=== PATIENT | male | born 1950 | race Caucasian/White ===

== ENCOUNTER 2020-07-01 06:30 | Inpatient (IN) | payer MEDICARE ==
[~2020-07-01] VITALS: Ht 170.2 cm; Wt 83.2 kg
[2020-07-01] MEDS ORDERED: HEPARIN 25,000 UNITS/250ML PMX 250 ML ONE (06:34)
[2020-07-01] MEDS ORDERED: MIDAZOLAM 1 MG/ML, 5ML ONE (06:36)
[2020-07-01] MEDS ORDERED: FENTANYL PF 100 MCG/2ML ONE (06:36)
[2020-07-01] MEDS ORDERED: BIVALIRUDIN 250 MG ONE (06:37)
[2020-07-01] MEDS ORDERED: ASPI-515 PO (06:37)
[2020-07-01] MEDS ORDERED: VERAPAMIL 2.5 MG/ML, 2ML ONE (06:37)
[2020-07-01] MEDS ORDERED: LIDOCAINE 2%, 20ML ONE (06:37)
[2020-07-01] MEDS ORDERED: HEPARIN 1,000 UNITS/ML, 10ML ONE (06:37)
[2020-07-01] MEDS ORDERED: TICAGRELOR 90 MG TABLET ONE (06:37)
[2020-07-01] MEDS ORDERED: LISINOPRIL PO (06:37)
--- NOTE | 2020-07-01 06:42 | NUR ---
Pt presents to ed for chest discomfort for "last couple of days." States pain worse last night that woke him up out of sleep. Aleasa deemed pt candidate for code cardiac and tx to our facility directly after admit to [facility]. Pt given 324 mg asa, 0.4 mg of nitro, 4 mg zofran, 4 mg morphine, 4000 U bolus of heparin and 1000 U/hr drip from sending facility. Bilateral 18 G ac placed via sending facility. Upon admit to facility, pt has mild chest discomfort midline "not too bad" w/ no radiation or associated sob. states to maintain 1000 U/hr heparin drip via sending facility. Verified w/ Dara LORA. Code cardiac canceled after EKG and consult via ERP. All monitoring intact and vss. Awaiting further orders.
[2020-07-01] MEDS ORDERED: NITROGLYCERIN OINT 2%, 1GM TP ONE ×2 (06:47→07:00)
[2020-07-01 06:53] LABS: BASOPHILS # (AUTO) 0.01 x10^3/uL (0-0.1); BASOPHILS % (AUTO) 0 % (0-1); EOSINOPHILS # (AUTO) 0.03 x10^3/uL (0-0.4); EOSINOPHILS % (AUTO) 0 % (1-7); LYMPHOCYTES # (AUTO) 0.63 x10^3/uL (1-3.4); LYMPHOCYTES % (AUTO) 6 % (22-44); MD NO; MEAN CORPUSCULAR HEMOGLOBIN 31.1 pg (27.5-34.5); MEAN CORPUSCULAR VOLUME 94.3 fL (81-97); MEAN PLATELET VOLUME 7.4 fL (7.4-10.4); MONOCYTES # (AUTO) 0.76 x10^3/uL (0.2-0.8); MONOCYTES % (AUTO) 7 % (2-9); NEUTROPHILS # (AUTO) 9.94 x10^3/uL (1.8-6.8); NEUTROPHILS % (AUTO) 88 % (42-75); PLATELET COUNT 249 x10^3/uL (130-400); RED BLOOD COUNT 4.26 x10^6/uL (4.38-5.82); RED CELL DISTRIBUTION WIDTH 13.1 % (9.4-14.8)
--- NOTE | 2020-07-01 06:53 | NUR ---
REPORT FROM SRIDEVI
[2020-07-01] MEDS: HEPARIN 5,000 UNITS/ML, 1ML IV PRN ×3 (06:56→21:16)
[2020-07-01] MEDS: HEPARIN 25,000 UNITS/250ML PMX 250 ML IV PRN (06:57)
[2020-07-01] MEDS ORDERED: HEPARIN 5,000 UNITS/ML, 1ML IV ONE (07:00)
[2020-07-01] MEDS ORDERED: SODIUM CHLORIDE FLUSH 10ML SYR IVF ONE (07:00)
[2020-07-01 07:01] LABS: ALBUMIN 3.8 g/dL (3.4-5.0); ANION GAP 5 mmol/L (5-15); CHLORIDE 100 mmol/L (98-107); CREATININE 0.71 mg/dL (0.7-1.3)
--- NOTE | 2020-07-01 07:03 | NUR ---
Past MT called code cardiac @ 0549. All phlebotomist medical lab assistant in route to ED @ 0541 per code phone team. Cardiology paged @ 0602. Code cardiac cancelled per EDMD @ 0642.
[2020-07-01 07:06] LABS: TROPONIN I 0.171 ng/mL (0.000-0.045)
--- NOTE | 2020-07-01 07:08 | NUR ---
See above note: Cardiology called back @ 0604.
--- NOTE | 2020-07-01 07:58 | NUR ---
STAT ECHO ordered per Dr. Salgado's request. Spoke with Clarisse from [facility] she states a tech will be down to complete the exam. Dr. Salgado to read ECHO.
--- NOTE | 2020-07-01 08:52 | NUR ---
REPORT TO JAIME. [facility] READY FOR TRANSFER
[2020-07-01] MEDS ORDERED: OMNIPAQUE 350 MG/ML, 75ML BOTTLE ONE ×2 (09:26→09:32)
[2020-07-01] MEDS ORDERED: ONDANSETRON 2MG/ML, 2ML IVPush PRN (09:30)
[2020-07-01] MEDS ORDERED: DIPHENHYDRAMINE 25 MG CAPSULE PO PRN (09:30)
[2020-07-01] MEDS ORDERED: ENALAPRILAT 1.25 MG/ML, 2ML IVPush PRN (09:30)
[2020-07-01] MEDS ORDERED: morphine SULFATE 10 MG/ML, 1ML IVPush PRN (09:30)
[2020-07-01] MEDS ORDERED: ONDANSETRON ODT 4 MG PO PRN (09:30)
[2020-07-01 09:51] VITALS: BP 156/95
[2020-07-01 10:01] LABS: TROPONIN I 0.101 ng/mL (0.000-0.045)
[2020-07-01 13:05] VITALS: BP 120/80
[2020-07-01 15:29] LABS: TROPONIN I 0.088 ng/mL (0.000-0.045)
[2020-07-01 20:35] VITALS: BP 121/77
[2020-07-01] MEDS: FAMOTIDINE 20 MG TABLET PO SCH (20:41)
[2020-07-01] MEDS: ACETAMINOPHEN 325 MG TABLET PO PRN (20:41)
[2020-07-02] VITALS (7 sets, daily range): BP systolic 125–208; BP diastolic 84–99
[2020-07-02 03:36] LABS: BASOPHILS # (AUTO) 0.02 x10^3/uL (0-0.1); BASOPHILS % (AUTO) 0 % (0-1); EOSINOPHILS # (AUTO) 0.11 x10^3/uL (0-0.4); EOSINOPHILS % (AUTO) 1 % (1-7); LYMPHOCYTES # (AUTO) 0.63 x10^3/uL (1-3.4); LYMPHOCYTES % (AUTO) 6 % (22-44); MD NO; MEAN CORPUSCULAR HEMOGLOBIN 31.6 pg (27.5-34.5); MEAN CORPUSCULAR HGB CONC 33.6 g/dL (33.2-36.2); MEAN CORPUSCULAR VOLUME 93.9 fL (81-97); MEAN PLATELET VOLUME 7.3 fL (7.4-10.4); MONOCYTES # (AUTO) 0.79 x10^3/uL (0.2-0.8); MONOCYTES % (AUTO) 8 % (2-9); NEUTROPHILS # (AUTO) 8.34 x10^3/uL (1.8-6.8); NEUTROPHILS % (AUTO) 84 % (42-75); PLATELET COUNT 222 x10^3/uL (130-400); RED BLOOD COUNT 3.83 x10^6/uL (4.38-5.82); RED CELL DISTRIBUTION WIDTH 13.1 % (9.4-14.8)
[2020-07-02 03:46] LABS: ANION GAP 6 mmol/L (5-15); CALCIUM 8.1 mg/dL (8.5-10.1); CHLORIDE 101 mmol/L (98-107); CREATININE 0.65 mg/dL (0.7-1.3)
[2020-07-02] MEDS: HEPARIN 5,000 UNITS/ML, 1ML IV PRN ×3 (04:01→18:30)
[2020-07-02] MEDS: ASPIRIN 325 MG TABLET EC PO SCH (05:45)
[2020-07-02] MEDS: HEPARIN 25,000 UNITS/250ML PMX 250 ML IV PRN (05:46)
[2020-07-02] MEDS: FAMOTIDINE 20 MG TABLET PO SCH ×2 (09:27→20:14)
[2020-07-02] MEDS ORDERED: MORPHINE SULFATE 4 MG/ML, 1ML IVPush PRN (09:30)
[2020-07-02 09:32] LABS: TROPONIN I 0.045 ng/mL (0.000-0.045)
[2020-07-02] MEDS: ACETAMINOPHEN 325 MG TABLET PO PRN ×2 (09:40→14:16)
[2020-07-02] MEDS: CEFTRIAXONE PMX 1GM/50ML 50 ML IV SCH (09:47)
[2020-07-02] MEDS: DOCUSATE 100 MG CAPSULE PO PRN (10:55)
[2020-07-02] MEDS ORDERED: GADOTERATE 7.5 MMOL/15 ML SYR ONE (17:55)
[2020-07-02] MEDS: OXYcodone IR 5MG TABLET PO PRN (18:31)
[2020-07-03 00:24] VITALS: BP 153/93
[2020-07-03] MEDS: HEPARIN 5,000 UNITS/ML, 1ML IV PRN ×2 (01:23→08:17)
[2020-07-03] MEDS: OXYcodone IR 5MG TABLET PO PRN ×2 (04:04→17:10)
[2020-07-03] MEDS: HEPARIN 25,000 UNITS/250ML PMX 250 ML IV PRN (04:06)
[2020-07-03] MEDS: ASPIRIN 325 MG TABLET EC PO SCH (05:30)
[2020-07-03 05:34] LABS: MEAN CORPUSCULAR HEMOGLOBIN 31.1 pg (27.5-34.5); MEAN CORPUSCULAR HGB CONC 32.9 g/dL (33.2-36.2); MEAN CORPUSCULAR VOLUME 94.3 fL (81-97); MEAN PLATELET VOLUME 7.8 fL (7.4-10.4); PLATELET COUNT 242 x10^3/uL (130-400); RED BLOOD COUNT 3.67 x10^6/uL (4.38-5.82); RED CELL DISTRIBUTION WIDTH 13.3 % (9.4-14.8)
[2020-07-03 05:46] LABS: ANION GAP 7 mmol/L (5-15); CALCIUM 8.5 mg/dL (8.5-10.1); CHLORIDE 99 mmol/L (98-107)
[2020-07-03 05:48] LABS: CREATININE 0.52 mg/dL (0.7-1.3)
[2020-07-03 06:33] LABS: BASOPHILS % (AUTO) 0 % (0-1); EOSINOPHILS # (AUTO) 0.11 x10^3/uL (0-0.4); EOSINOPHILS % (AUTO) 1 % (1-7); LYMPHOCYTES # (AUTO) 0.62 x10^3/uL (1-3.4); LYMPHOCYTES % (AUTO) 7 % (22-44); MD SCAN; MONOCYTES # (AUTO) 0.56 x10^3/uL (0.2-0.8); MONOCYTES % (AUTO) 6 % (2-9); NEUTROPHILS # (AUTO) 7.96 x10^3/uL (1.8-6.8); NEUTROPHILS % (AUTO) 86 % (42-75)
[2020-07-03] MEDS: FAMOTIDINE 20 MG TABLET PO SCH ×2 (08:16→20:37)
[2020-07-03] MEDS: METOPROLOL SUCCINATE 50 MG TAB.ER.24H PO SCH (08:16)
[2020-07-03 08:41] LABS: CHOL/HDL RATIO 3.3; LDL/HDL RATIO 1.8 (0.5-3.0)
[2020-07-03 08:46] VITALS: BP 147/90
[2020-07-03] MEDS: ACETAMINOPHEN 325 MG TABLET PO PRN ×2 (09:37→20:38)
[2020-07-03] MEDS: AZITHROMYCIN 500 MG TABLET PO SCH (10:36)
[2020-07-03] MEDS: CEFTRIAXONE PMX 1GM/50ML 50 ML IV SCH (10:36)
[2020-07-03 12:28] VITALS: BP 142/79
[2020-07-03] MEDS: DOCUSATE 100 MG CAPSULE PO PRN (20:38)
[2020-07-04 00:29] VITALS: BP 127/80
[2020-07-04 05:21] VITALS: BP 137/81
[2020-07-04] MEDS: METOPROLOL SUCCINATE 50 MG TAB.ER.24H PO SCH (05:23)
[2020-07-04] MEDS: ASPIRIN 325 MG TABLET EC PO SCH (05:23)
[2020-07-04 07:04] VITALS: BP 131/84
[2020-07-04] MEDS: CEFTRIAXONE PMX 1GM/50ML 50 ML IV SCH (09:17)
[2020-07-04] MEDS: FAMOTIDINE 20 MG TABLET PO SCH ×2 (09:17→20:01)
[2020-07-04] MEDS: AZITHROMYCIN 500 MG TABLET PO SCH (09:17)
[2020-07-04] MEDS: ENOXAPARIN 40 MG/0.4 ML SQ SCH (12:31)
[2020-07-04 13:12] VITALS: BP 136/83
[2020-07-04] MEDS: ACETAMINOPHEN 325 MG TABLET PO PRN ×2 (15:40→20:05)
[2020-07-04 19:41] VITALS: BP 159/101
[2020-07-05 01:04] VITALS: BP 149/89
[2020-07-05] MEDS: METOPROLOL SUCCINATE 50 MG TAB.ER.24H PO SCH (05:40)
[2020-07-05] MEDS: ASPIRIN 325 MG TABLET EC PO SCH (05:40)
[2020-07-05 05:41] VITALS: BP 148/95
[2020-07-05 07:14] VITALS: BP 147/92
[2020-07-05] MEDS ORDERED: METO-93 PO (08:30)
[2020-07-05] MEDS ORDERED: AMOX1TAB12 PO (08:30)
[2020-07-05] MEDS: FAMOTIDINE 20 MG TABLET PO SCH (08:52)
[2020-07-05] MEDS: AZITHROMYCIN 500 MG TABLET PO SCH (08:52)
[2020-07-05] MEDS: CEFTRIAXONE PMX 1GM/50ML 50 ML IV SCH (08:52)
[2020-07-05] MEDS: ENOXAPARIN 40 MG/0.4 ML SQ SCH (12:46)
== END 2020-07-05 13:00 | disposition home or self-care (01) | DRG 177 ==
LOC: ED 06:41 → EDIP 08:04 → SUATTDRO 09:03 → 5SO 09:51 → DCLOUNGE 07-05 12:50
PROVIDERS: ADMIT Internal Medicine; ATTEND Internal Medicine
DX: J15.6 Pneumonia due to other Gram-negative bacteria (principal); J96.01 Acute respiratory failure with hypoxia; I21.A1 Myocardial infarction type 2; E87.1 Hypo-osmolality and hyponatremia; J98.11 Atelectasis; I20.0 Unstable angina; I10 Essential (primary) hypertension; E78.5 Hyperlipidemia, unspecified; I35.8 Other nonrheumatic aortic valve disorders; I48.0 Paroxysmal atrial fibrillation; R07.0 Pain in throat; Z79.82 Long term (current) use of aspirin; Z79.899 Other long term (current) drug therapy; Z72.89 Other problems related to lifestyle
CPT/HCPCS: 36415; 71045; 71275; 72050; 72156; 80048; 80061; 82040; 84443; 84484; 85025; 85520; 86140; 93005; 93306; G0378; J0583; J0696; J1644; J1650; J2250; J3010; Q9967; A9575; J2270

== ENCOUNTER → 2020-08-19 | Outpatient (CLI) | payer MEDICARE, BC ==
[~2020-08-19] MED LIST: AMOX1TAB12 PO; ASPI-515 PO; LISINOPRIL PO; METO-93 PO; REGADENOSON 0.4 MG/5 ML SYRINGE ONE
== END | disposition home or self-care (01) ==
LOC: CFH 11:48
PROVIDERS: ATTEND Internal Medicine Cardiovascular Disease
DX: I21.4 Non-ST elevation (NSTEMI) myocardial infarction (principal)
CPT/HCPCS: 78452; 93017; A9502; J2785